=== PATIENT | female | born 1960 | race Caucasian/White ===

== ENCOUNTER 2016-12-13 14:53 | Emergency (ER) | payer OTHER ==
[~2016-12-13] VITALS: Ht 170.2 cm; Wt 70.5 kg
[~2016-12-13 14:53] MED LIST: ESTR1TAB24 PO; LINA5TAB PO; LISI-567 PO; METF500T4 PO; TRAZ-118 PO
[2016-12-13 14:56] VITALS: BP 144/96; PULSE 102; RESP 15; O2SAT 98
[2016-12-13] MEDS ORDERED: Fluorescein 0.6 mg Ophthalmic Strip ONE (15:06)
[2016-12-13] MEDS ORDERED: 0.9% Sodium Chloride Inhalation Solution ONE (15:06)
[2016-12-13] MEDS ORDERED: Tetracaine 0.5% 4 mL Ophthalmic Solution ONE (15:07)
--- NOTE | 2016-12-13 15:08 | ED.REPORT ---
HPI-Eye Problem Date of Service Dec 13, 2016 ED Provider: Celio Newton MD Pt is a 56 y.o. female with a hx of DM and HTN who presents to the ED c/o a foreign body in her left eye onset prior to arrival. Pt states that she was cleaning out a planter and pulled out a dried piece of wood and it hit her in the face, specifically the left eye. Pt reports that after the incident she felt like she had a splinter in her eye and checked in a magnified mirror and noticed that her left eye looked "bubbled". She reports associated left eye pain. Nursing Notes Stated Complaint: EYE IRRITATION Chief Complaint: Eye Nursing Notes Reviewed: Yes Allergies: Coded Allergies: No Known Drug Allergies (Verified Allergy, Unknown, 01/27/16) Scheduled Estradiol (Estradiol) 1 Mg Tablet 1 MG PO DAILY Linagliptin (Tradjenta) 5 Mg Tablet 5 MG PO DAILY Lisinopril (Lisinopril) 20 Mg Tablet 20 MG PO DAILY Metformin (Metformin) 500 Mg Tablet 1,000 MG PO BID Ofloxacin (Ofloxacin) 5 Ml Drops 5 ML OT QID Trazodone (Trazodone) 100 Mg Tablet 100 MG PO HS Scheduled PRN Ibuprofen (Ibuprofen) 800 Mg Tablet 800 MG PO TID PRN PRN For Pain General Time Seen by MD: 15:08 Chief Complaint Left eye affected, Foreign body sensation Hx Obtained From: Patient Arrived By: Walk-in Sudden in Onset?: Yes Onset Occurred: Just prior to arrival Symptom Duration: Since onset Caused by: Foreign body in eye Location: : Eye left Quality: Painful Severity: Current: Moderate Recent Healthcare: No recent doctor visit, No recent hospitalization Similar Sx Previous: No Past Medical History Past Medical History Reports: Diabetes mellitus, Hypertension Past Surgical History Reports: Hysterectomy Family History Brother and father of diabetes Smoking History Never Smoker Social History Alcohol Use: Denies alcohol use Drug Use: Denies drug use Ambulatory Status Independent Review of Systems Foreign body sensation, left eye Eyes: Reports: Eye pain left Complete sys rev & neg: except as marked. Physical Exam Initial Vital Signs Vital Signs (First) Date Time Temp Pulse Resp B/P Pulse Ox O2 Delivery O2 Flow Rate FiO2 12/13/16 14:56 36.8 102 15 144/96 98 Room Air Initial VS: Reviewed Respiratory: Breath sounds normal, Clear to auscultation, No respiratory distress Cardiovascular: Regular rate & rhythm, Intact distal pulses Abdomen / GI: No distention Extremities: Vascular intact, Neuro intact Skin: Warm, Dry, No cyanosis Neurologic: Alert, Oriented, Nonfocal Psychiatric: Mood/affect normal, Behavior normal, Normal thought content Head / Eyes: Normocephalic Cornea/Anterior Chamber: Positive: Abrasion L... General/Constitutional: Awake, Alert, Well appearing, Well developed, Well hydrated, Well nourished, Not toxic appearing Procedures Slit Lamp Exam Time: 15:22 Procedure Performed by: ED physician Which Eye: Left Dilating Agent & Anesthesia: Anesthesia: Tetracaine Eyelid / Conjunctiva / Sclera: Eyelid(s) normal Cornea/Ant Chamber/Iris/Lens: Corneal abrasion Re-Eval/Medical Decision Med Decision/Clinical Course 59-year-old female presenting complaining of foreign body to left eye earlier today. She reports she pushed spine from a plant stuck in her left eye. She reports she thought she saw something in her eye which she no longer sees now. Still with pain and foreign body sensation. No blurry vision. Extraocular movements intact. There is no foreign body visualized. Fluorescein with small corneal abrasion. Discussed with ophthalmology who recommended antibiotic drops with ofloxacin 5 days. Follow-up with them 1-2 days if symptoms do not resolve. Source of Hx: Old records Re-Evaluation/Progress : Time of Eval: 15:50 Re-Evaluation/Progress Note: Pt rechecked. Discussed consult with Dr. Rangel and plan for discharge, pt undertsands and agrees with plan. Consultation : Referral / Consult Name: Cliff Rangel MD Requested Call at: 15:36 Note: Consulted with Dr. Rangel , ophthamology, about pt condition, recommends ofloxacin drops for 3-5 days and follow-up with ophthamology in 1-2 days if symptoms persist Discharge & Departure Primary Impression: Cornea abrasion Encounter type: initial encounter Laterality: left Qualified Code: S05.02XA - Injury of conjunctiva and corneal abrasion without foreign body, left eye, initial encounter Disposition: Home Discharge Condition All VS Reviewed: Yes Condition: Stable Patient Instructions: Corneal Abrasion (ED) Additional Instructions: It appears that you have a corneal abrasion to your left eye. Upon examination I did not find a foreign body in your eye. I will prescribe you ofloxacin eye drops to take 4 times daily for the next 5 days. If your symptoms persist I recommend you follow up with ophthalmology in 1-2 days. Seek care if you experience vision loss or any new or worsening symptoms. Referrals: Nicolas Goodwin MD (PCP) Cliff Rangel MD Attestation Portions of this note were transcribed by Jhony Smith. I, Dr. Newton personally performed the history, physical exam and medical decision-making; I reviewed and confirmed the accuracy of the information in the transcribed note. Signed by: Maria Dolores Powers, 12/13/16 and 1616. copies to: Cliff Rangel MD; Nicolas Goodwin MD, Ben M MD Dec 13, 2016 15:08 JHONY SMITH Dec 13, 2016 15:30
[2016-12-13] MEDS ORDERED: OFLO5DRO9 OT (15:39)
[2016-12-13] MEDS ORDERED: IBUP800T28 PO (16:08)
== END 2016-12-13 16:08 | disposition home or self-care (01) ==
LOC: SED 14:53
DX: S05.02XA Injury of conjunctiva and corneal abrasion without foreign body, left eye, initial encounter (principal); W22.8XXA Striking against or struck by other objects, initial encounter; Y93.H2 Activity, gardening and landscaping; Y92.89 Other specified places as the place of occurrence of the external cause; Y99.8 Other external cause status; I10 Essential (primary) hypertension; E11.9 Type 2 diabetes mellitus without complications; Z79.84 Long term (current) use of oral hypoglycemic drugs